=== PATIENT | male | born 1955 | race Two or more races ===

== ENCOUNTER 2017-03-11 18:06 | Emergency (ER) | payer OTHER ==
[~2017-03-11] VITALS: Ht 162.6 cm; Wt 72.6 kg
[2017-03-11 19:45] VITALS: BP 147/79
[2017-03-11] MEDS ORDERED: DIPHTH,PERTUSS(ACELL),TET TOX 0.5 ML DISP.SYRIN. VAX IM ONE (20:30)
[2017-03-11] MEDS ORDERED: AMOX1TAB61 PO (20:50)
--- NOTE | 2017-03-11 20:50 | PHYS DOC ---
Past Medical History Past Medical History: No Pertinent History Past Surgical History: No Surgical History Alcohol Use: None Drug Use: None Adult General Chief Complaint Chief Complaint: ANIMAL BITE HPI HPI Patient is a 61 year old male who presents with dog bite to the left posterior thigh that happened today. This is a stray dog. Patient is in the ED with the son who was interpreting for their ramona language. Review of Systems Review of Systems Constitutional: Denies fever or chills [] Musculoskeletal: Denies back pain or joint pain [] Integument: Dog bite to the left posterior thigh Neurologic: Denies headache, focal weakness or sensory changes [] Current Medications Current Medications Current Medications Medications (Trade) Dose Ordered Sig/Pasha Start Time Stop Time Status Last Admin Dose Admin Diphtheria/ Tetanus/Acell Pertussis (Boostrix) 0.5 ml ONCE ONCE 03/11/17 20:30 03/11/17 20:31 DC Allergies Allergies Allergies Coded Allergies Type Severity Reaction Last Updated Verified No Known Drug Allergies 03/11/17 No Physical Exam Physical Exam Constitutional: Well developed, well nourished, no acute distress, non-toxic appearance. [] Skin: Left posterior thigh with a puncture wound approximately 0.3X0.3 cm with no drainage Back: No tenderness, no CVA tenderness. [] Extremities: No tenderness, no cyanosis, no clubbing, ROM intact, no edema. [] Neurologic: Alert and oriented X 3, normal motor function, normal sensory function, no focal deficits noted. [] Psychologic: Affect normal, judgement normal, mood normal. [] Current Patient Data Vital Signs Vital Signs Date Time Temp Pulse Resp B/P (MAP) Pulse Ox O2 Delivery O2 Flow Rate FiO2 03/11/17 19:45 98.6 87 18 99 Room Air 98.6 EKG EKG [] Radiology/Procedures Radiology/Procedures [] Course & Med Decision Making Course & Med Decision Making Pertinent Labs and Imaging studies reviewed. (See chart for details) Patient has dog bite to the left lower extremity. Discharged with Augmentin. Tetanus updated. Follow-up with PCP in 1-2 weeks as needed. Provided return precautions and wound care instructions. Dragon Disclaimer Dragon Disclaimer This electronic medical record was generated, in whole or in part, using a voice recognition dictation system. Departure Departure Impression: Primary Impression: Dog bite Disposition: HOME, SELF-CARE Condition: STABLE Referrals: LILIANA RODRIGUEZ MD (PCP) Look follow-up with your doctor in 1-2 weeks Patient Instructions: Animal Bite, [id number] Additional Instructions: You seen for a dog bite to the left lower extremity. You can shower, keep the area clean and dry. Take the prescribed antibiotics until completed. Follow-up with your doctor in 1-2 weeks. Come back to the ED if symptoms worsen, you got a tetanus shot in the [facility] Amoxicillin/Potassium Clav (AUGMENTIN 875-125 TABLET) 1 Each Tablet 1 TAB PO BID, #20 TAB Prov: DURGA SIMPSON APRN 03/11/17 Problem Qualifiers Primary Impression: Dog bite Encounter type: initial encounter Qualified Codes: W54.0XXA - Bitten by dog , initial encounter DURGA SIMPSON APRN Mar 11, 2017 20:50
== END 2017-03-11 21:01 | disposition home or self-care (01) ==
LOC: ER 18:06
DX: S71.152A Open bite, left thigh, initial encounter (principal); W54.0XXA Bitten by dog, initial encounter; Y93.89 Activity, other specified; Y99.8 Other external cause status; Y92.89 Other specified places as the place of occurrence of the external cause
CPT/HCPCS: 90471; 90715; 99283-25